=== PATIENT | female | born 1985 | race Caucasian/White ===

== ENCOUNTER 2017-05-11 16:57 | Emergency (ER) | payer MEDICAID ==
--- NOTE | 2017-05-11 17:14 | EDPHY ---
H & P Stated Complaint: BIBA for syncopal episode Time Seen by Provider: 05/11/17 17:13 HPI/ROS: CHIEF COMPLAINT: Syncope HISTORY OF PRESENT ILLNESS: The patient presents emergency department after an episode of syncope that occurred while walking. The patient denies antecedent chest pain, shortness of breath, palpitations or prior history. The patient does report she may have been somewhat dehydrated today. The patient's past medical history is significant for multiple miscarriages, hypothyroidism chronic back pain. She has been off of her Synthroid for the past 2 weeks. The patient denies any fever, cough or congestion. The patient did not sustain a traumatic fall as a result of her syncopal episode today. She was caught by her boyfriend and assisted to the ground. The patient denies any asymmetric calf pain or swelling. She denies any additional acute complaints. The patient does complain of some dysuria. REVIEW OF SYSTEMS: A comprehensive 10 point review of systems is otherwise negative aside from elements mentioned in the history of present illness. Source: Patient Exam Limitations: No limitations - Personal History LMP (Females 10-55): 1-7 Days Ago Current Tetanus/Diphtheria Vaccine: Unsure Current Tetanus Diphtheria and Acellular Pertussis (TDAP): Unsure - Medical/Surgical History Hx Asthma: No Hx Chronic Respiratory Disease: No Hx Diabetes: No Hx Cardiac Disease: No Hx Renal Disease: No Hx Cirrhosis: No Hx Alcoholism: No Hx HIV/AIDS: No Hx Splenectomy or Spleen Trauma: No Other PMH: hypothyroid, chronic back pain - Social History Smoking Status: Current every day smoker - Physical Exam Exam: General Appearance: Alert, no distress Eyes: Pupils equal and round no pallor or injection ENT, Mouth: Mucous membranes moist Respiratory: There are no retractions, lungs are clear to auscultation Cardiovascular: Regular rate and rhythm Gastrointestinal: Abdomen is soft and nontender, no masses, bowel sounds normal Neurological: A&O, normal motor function, normal sensory exam, normal cranial nerves Skin: Warm and dry, no rashes Musculoskeletal: Neck is supple nontender Extremities: symmetrical, full range of motion Constitutional: Initial Vital Signs Temperature (C) 36.8 C 05/11/17 17:11 Heart Rate 71 05/11/17 17:11 Respiratory Rate 16 05/11/17 17:11 Blood Pressure 133/84 H 05/11/17 17:11 O2 Sat (%) 96 02/26/18 17:11 O2 Delivery Mode Room Air Allergies/Adverse Reactions: No Known Allergies Allergy (Unverified 05/11/17 17:10) Home Medications: Medication Instructions Recorded Cephalexin [Keflex] 500 mg PO TID #15 cap 05/11/17 Medical Decision Making - Diagnostics EKG Interpretation: EKG: Complete interpretation has been separately recorded in the [email or web address] archive. Summary impression: Sinus rhythm, rate 65 ED Course/Re-evaluation: The patient presents to the ED after an episode of syncope which seems to be vasovagal in nature. The patient's EKG demonstrates no evidence of arrhythmia. She is stable well-appearing in the ED. The patient did receive IV fluids. She does have mild dysuria. Her urinalysis may be contaminated but she will be treated given her symptoms. The patient will be restarted on her medications for her hypothyroidism. The patient is given the contact number for [facility]. Patient is advised to return to the ED for any chest pain or shortness of breath. The patient has been informed of her workup in diagnosis the emergency department. The patient did undergo serial examinations in the ED over a several hour period without evidence of arrhythmia or vital sign abnormality. The patient is ambulatory without recurrent syncope. Differential Diagnosis: Differential diagnosis considered includes TIA, stroke, metabolic abnormality, arrhythmia, ectopic , hypothyroidism, UTI - Data Points Laboratory Results: Laboratory Results 05/11/17 17:00 05/11/17 17:00 05/11/17 05/11/17 05/11/17 18:25 17:00 17:00 WBC RBC Hgb Hct MCV MCH MCHC RDW Plt Count MPV Neut % (Auto) Lymph % (Auto) [place] % (Auto) Eos % (Auto) Baso % (Auto) Nucleat RBC Rel Count Absolute Neuts (auto) Absolute Lymphs (auto) Absolute Monos (auto) Absolute Eos (auto) Absolute Basos (auto) Absolute Nucleated RBC Immature Gran % Immature Gran # Sodium 139 mEq/L mEq/L (135-145) Potassium 4.0 mEq/L mEq/L (3.5-5.2) Chloride 102 mEq/L mEq/L (97-110) Carbon Dioxide 21 mEq/l L mEq/l (22-31) Anion Gap 16 mEq/L mEq/L (8-16) BUN 11 mg/dL mg/dL (7-23) Creatinine 0.8 mg/dL mg/dL (0.6-1.0) Estimated GFR > 60 Glucose 94 mg/dL mg/dL (70-100) Calcium 9.8 mg/dL mg/dL (8.5-10.4) Beta HCG, Qual NEGATIVE Urine Color DEUQAN Urine Appearance MODERATELY TURBID Urine pH 5.0 (5.0-7.5) Ur Specific [place] 1.023 (1.002-1.030) Urine Protein NEGATIVE (NEGATIVE) Urine Ketones 1+ H (NEGATIVE) Urine Blood 3+ H (NEGATIVE) Urine Nitrate POSITIVE H (NEGATIVE) Urine Bilirubin NEGATIVE (NEGATIVE) Urine Urobilinogen 4.0 EU H EU (0.2-1.0) Ur Leukocyte Esterase TRACE H (NEGATIVE) Urine RBC 10-15 /hpf H /hpf (0-3) Urine WBC 10-15 /hpf H /hpf (0-3) Ur Epithelial Cells 2+ /lpf H /lpf (NONE-1+) Urine Bacteria 4+ /hpf H /hpf (NONE SEEN) Urine Mucus 3+ /lpf H /lpf (NONE-1+) Urine Glucose NEGATIVE (NEGATIVE) 05/11/17 17:00 WBC 7.80 10^3/uL 10^3/uL (3.80-9.50) RBC 4.32 10^6/uL 10^6/uL (4.18-5.33) Hgb 14.6 g/dL g/dL (12.6-16.3) Hct 40.8 % % (38.0-47.0) MCV 94.4 fL fL (81.5-99.8) MCH 33.8 pg pg (27.9-34.1) MCHC 35.8 g/dL g/dL (32.4-36.7) RDW 12.4 % % (11.5-15.2) Plt Count 192 10^3/uL 10^3/uL (150-400) MPV 11.6 fL fL (8.7-11.7) Neut % (Auto) 55.6 % % (39.3-74.2) Lymph % (Auto) 32.2 % % (15.0-45.0) [place] % (Auto) 8.7 % % (4.5-13.0) Eos % (Auto) 2.4 % % (0.6-7.6) Baso % (Auto) 1.0 % % (0.3-1.7) Nucleat RBC Rel Count 0.0 % % (0.0-0.2) Absolute Neuts (auto) 4.33 10^3/uL 10^3/uL (1.70-6.50) Absolute Lymphs (auto) 2.51 10^3/uL 10^3/uL (1.00-3.00) Absolute Monos (auto) 0.68 10^3/uL 10^3/uL (0.30-0.80) Absolute Eos (auto) 0.19 10^3/uL 10^3/uL (0.03-0.40) Absolute Basos (auto) 0.08 10^3/uL 10^3/uL (0.02-0.10) Absolute Nucleated RBC 0.00 10^3/uL 10^3/uL (0-0.01) Immature Gran % 0.1 % % (0.0-1.1) Immature Gran # 0.01 10^3/uL 10^3/uL (0.00-0.10) Sodium Potassium Chloride Carbon Dioxide Anion Gap BUN Creatinine Estimated GFR Glucose Calcium Beta HCG, Qual Urine Color Urine Appearance Urine pH Ur Specific [place] Urine Protein Urine Ketones Urine Blood Urine Nitrate Urine Bilirubin Urine Urobilinogen Ur Leukocyte Esterase Urine RBC Urine WBC Ur Epithelial Cells Urine Bacteria Urine Mucus Urine Glucose Medications Given: Discontinued Medications Sodium Chloride (Ns) 1,000 mls @ 0 mls/hr IV EDNOW ONE; Wide Open PRN Reason: Protocol Stop: 05/11/17 17:37 Last Admin: 05/11/17 17:51 Dose: 1,000 mls Sodium Chloride (Ns) 1,000 mls @ 0 mls/hr IV EDNOW ONE; Wide Open PRN Reason: Protocol Stop: 05/11/17 17:37 Last Admin: 05/11/17 17:52 Dose: 1,000 mls Ibuprofen (Motrin) 600 mg PO EDNOW ONE Stop: 05/11/17 17:55 Last Admin: 05/11/17 17:56 Dose: 600 mg Departure - Departure Disposition: Home, Routine, Self-Care Clinical Impression: Vasovagal episode, Cystitis Condition: Good Instructions: Urinary Tract Infection in Women (ED) Additional Instructions: 1. Please try and increase your fluid intake as you may have had some degree of dehydration today. 2. Return to the ED for recurrent passing out, chest pain or difficulty breathing. 3. Please follow up with [facility] to establish primary care. 4. You have been given a prescription for antibiotics for urinary tract infection and a refill of your Synthroid. Referrals: [facility],. [Clinic] - As per Instructions Prescriptions: Cephalexin [Keflex] 500 mg PO TID #15 cap
--- NOTE | 2017-05-11 17:18 | CPEKG ---
Heart Rate: 65 RR Interval: 923 P-R Interval: 144 QRSD Interval: 76 QT Interval: 388 QTC Interval: 404 P [place]: 52 QRS [place]: 64 T Wave [place]: 52 EKG Severity - NORMAL ECG - EKG Impression: SINUS RHYTHM Electronically Signed By: Jame Prieto 12-May-2017 00:13:48
[2017-05-11 17:32] LABS: PLATELET COUNT 192 10^3/uL (150-400)
[2017-05-11] MEDS ORDERED: NS 1,000 ML IV ONE ×2 (17:36)
[2017-05-11 17:53] VITALS: O2SAT 95
[2017-05-11] MEDS ORDERED: IBUPROFEN 600 MG TAB PO ONE (17:54)
[2017-05-11 19:24] VITALS: BP 110/69; PULSE 81; RESP 18; TEMP 98.1
== END 2017-05-11 19:24 | disposition home or self-care (01) ==
DX: R55 Syncope and collapse (principal); N30.90 Cystitis, unspecified without hematuria; E86.9 Volume depletion, unspecified; F17.200 Nicotine dependence, unspecified, uncomplicated